=== PATIENT | female | born 1965 | race Caucasian/White ===

== ENCOUNTER → 2016-04-14 | Outpatient (CLI) | payer OTHER ==
[~2016-04-14] MED LIST: ALPR0.5T3 PO; CARI350T19 PO; CARI350T20 PO; GABA300C3 PO; GEMF600 PO; HYDR-3583 PO; HYDR2TAB PO; LOPI600T PO; LYRI100C PO; MOBI15TA PO; NAPR-576 PO; OMEP20TA PO; SERT-129 PO; SERT-132 PO; ZOFR4TAB3 SL; ZOLP5TAB3 PO
[2016-04-14 13:27] LABS: AUTOMATED NEUTROPHIL # 2.6 TH/MM3 (1.8-7.7); BASOPHIL % 0.4 % (0.0-2.0); EOSINOPHIL # 0.2 TH/MM3 (0-0.4); EOSINOPHIL % 3.3 % (0.0-4.0); HEMATOCRIT 36.8 % (35.0-46.0); HEMO FLAGS DIFF FINAL; LYMPH % 30.6 % (9.0-44.0); LYMPHOCYTE # 1.4 TH/MM3 (1.0-4.8); MEAN CELL VOLUME 83.5 FL (80.0-100.0); MEAN CORPUSCULAR HEMOGLOBIN 28.3 PG (27.0-34.0); MEAN CORPUSCULAR HGB CONC 33.9 % (32.0-36.0); MONO % 8.8 % (0.0-8.0); NEUT % 56.9 % (16.0-70.0); PLATELET COUNT 273 TH/MM3 (150-450); RED CELL DISTRIBUTION WIDTH 13.3 % (11.6-17.2); WHITE BLOOD COUNT 4.6 TH/MM3 (4.0-11.0)
[2016-04-14 13:52] LABS: BICARBONATE 29.8 MEQ/L (21.0-32.0); POTASSIUM 3.9 MEQ/L (3.5-5.1)
--- NOTE | 2016-04-15 17:21 | EKG ---
Date Performed: 04/14/2016 Time Performed: 13:19:52 PTAGE: 50 years EKG: Sinus rhythm WITH SINUS ARRHYTHMIA NONSPECIFIC T-WAVE ABNORMALITY BORDERLINE ECG NO PREVIOUS TRACING DOCTOR: Dorinda Elliott Interpretating Date/Time 04/15/2016 17:15:45
== END ==
LOC: CPRE 12:58
PROVIDERS: ATTEND Orthopaedic Surgery Orthopaedic Surgery of the Spine
DX: Z01.812 Encounter for preprocedural laboratory examination (principal); Z01.810 Encounter for preprocedural cardiovascular examination; D25.9 Leiomyoma of uterus, unspecified; R10.2 Pelvic and perineal pain; I49.8 Other specified cardiac arrhythmias
CPT/HCPCS: 36415; 80048; 85025; 93005

== ENCOUNTER 2016-04-21 08:19 | Observation (INO) | payer OTHER ==
[~2016-04-21] VITALS: Ht 162.6 cm; Wt 61.8 kg
[~2016-04-21 08:19] MED LIST changes: -CARI350T19 PO; -GABA300C3 PO; -HYDR2TAB PO; -LOPI600T PO; -NAPR-576 PO; -SERT-129 PO; -ZOFR4TAB3 SL
[2016-04-21] MEDS ORDERED: SODIUM CHLORID 0.9% 500 ML IV SCH (09:00)
[2016-04-21] MEDS ORDERED: CHLORHEXIDINE GLUCONATE 4% SOLN 120 ML BTL TOP SCH (09:00)
[2016-04-21] MEDS ORDERED: METOPROLOL TARTRATE 25 MG TAB PO PRN (09:00)
[2016-04-21] MEDS ORDERED: ceFAZolin 2 GM PREMIX 50 ML IV SCH (09:00)
[2016-04-21] MEDS ORDERED: LACTATED RINGER'S 1000 ML IV SCH (09:00)
[2016-04-21] MEDS ORDERED: INSULIN HUMAN REGULAR 1,000 UNITS/10 ML VIAL SQ PRN (09:00)
[2016-04-21] MEDS ORDERED: VANCOMYCIN 1000 MG/NS 250 ML (for <70 kg) IV SCH ×2 (09:00)
[2016-04-21 09:29] VITALS: BP 99/62; PULSE 60; RESP 20; TEMP 98.9; O2SAT 100
[2016-04-21] MEDS ORDERED: APREPITANT 40 MG CAP ONE (10:07)
[2016-04-21] MEDS ORDERED: DEXAMETHASONE SOD PHOS 4 MG/ML VIAL ONE (10:16)
[2016-04-21] MEDS ORDERED: FAMOTIDINE 20 MG/2 ML VIAL ONE (10:16)
[2016-04-21] MEDS ORDERED: MIDAZOLAM HCL 2 MG/2 ML VIAL ONE ×2 (10:16→12:12)
[2016-04-21] MEDS: BUPIVACAINE/EPINEPHRINE 0.25% PF 30 ML VIAL ONE ×2 (11:34→12:14)
[2016-04-21] MEDS: GENTAMICIN SULFATE 80 MG/2 ML VIAL ONE ×2 (11:34→12:13)
[2016-04-21] MEDS ORDERED: ONDANSETRON HCL 4 MG/2 ML VIAL IV PUSH ONE (12:00)
[2016-04-21] MEDS ORDERED: NEOSTIGMINE 3 MG/3 ML SYR IV ONE (12:00)
[2016-04-21] MEDS ORDERED: PHENYLEPHRINE HCL 10 MG/ML VIAL IV ONE (12:00)
[2016-04-21] MEDS ORDERED: PROPOFOL 200 MG/20 ML AMP IV ONE (12:00)
[2016-04-21] MEDS ORDERED: ePHEDrine/NS 25 MG/5 ML SYR IV ONE (12:00)
[2016-04-21] MEDS ORDERED: LACTATED RINGER'S 1000 ML INJ 1,000 ML IV ONE (12:00)
[2016-04-21] MEDS ORDERED: fentaNYL CITRATE 250 MCG/5 ML AMP ONE (12:12)
[2016-04-21] MEDS: LACTATED RINGER'S 1000 ML INJ 1,000 ML IV SCH (14:11)
[2016-04-21] MEDS ORDERED: PROMETHAZINE INJ 25 MG/ML VIAL IM PRN (14:15)
[2016-04-21] MEDS ORDERED: ALUMINUM/MAGNESIUM/SIMETH 30 ML CUP PO PRN (14:15)
[2016-04-21] MEDS ORDERED: NALOXONE HCL 0.4 MG/ML AMP IV PRN (14:15)
[2016-04-21] MEDS ORDERED: SODIUM CHLORIDE 0.9% FLUSH 5 ML FLUSH IVF PRN (14:15)
[2016-04-21] MEDS ORDERED: Post-op Orders (for Pharmacy) MISC XX ONE (14:15)
[2016-04-21] MEDS ORDERED: ONDANSETRON HCL 4 MG/2 ML VIAL IV PRN (14:15)
--- NOTE | 2016-04-21 14:21 | HHI.PR ---
Immediate Post Op Note Procedure Date: Apr 21, 2016 Pre Op Diagnosis: C5-6 ODC,C6-7 HNP L sided cervical rad,L UE weakness DDD,OA Post Op Diagnosis: Same Surgeon: Francisco Kaur MD Invertebrate Paleontologist(s): Stefany No PA-C Procedure: C5-6,C6-7 AIF,ACC,ASI Complications: None Estimated blood loss: 250 cc Anesthesia: General Drains: None Patient to: PACU Patient Condition: Good Implant/Devices: SEE IMPLANT LOG (if applicable) Date/Time of Procedure: SEE SURGICAL CARE RECORD Francisco Kaur MD Apr 21, 2016 14:21
--- NOTE | 2016-04-21 14:32 | RADRPT ---
EXAM DATE/TIME: 04/21/2016 13:37 [place] COMPARISON: No previous studies available for comparison. INDICATIONS : Cervical fusion, C5-6, C6-7. MEDICAL HISTORY : Unobtainable. SURGICAL HISTORY : Unobtainable. ENCOUNTER: Initial ACUITY: 1 day PAIN SCORE: Non-responsive. LOCATION: Neck. CONCLUSION: Fluoroscopic images during placement fusion plate C5-C7. Intervertebral disc devices also noted. Jim Mathews MD on April 21, 2016 at 14:30 Board Certified Radiologist. This report was verified electronically.
[2016-04-21] MEDS ORDERED: *MEPERIDINE 25 MG INJ VIAL PERIprocedural Use ONLY ONE (14:39)
[2016-04-21] MEDS ORDERED: *morphine SULFATE 8 MG/ML PERIprocedure ONLY ONE ×3 (15:16→16:41)
[2016-04-21 17:09] VITALS: BP 100/56; PULSE 99; RESP 19; TEMP 96; O2SAT 96
--- NOTE | 2016-04-21 17:17 | PD.OP ---
cc: Francisco Kaur MD; Benedicto Kaur MD Operative Report Date of Surgery: Apr 21, 2016 Preoperative Diagnosis: Osteophyte disc complex C56 and C6 7. Bilateral cervical radiculopathy, right greater than left Herniated nucleus pulposus C6 7, central, large. Cervical spinal cord compression, C67 Postoperative Diagnosis: Same Procedure: Anterior cervical discectomy with decompression and bilateral foraminotomies, C5 6. Anterior cervical discectomy with decompression and bilateral foraminotomies, C6 7. Left anterior iliac crest bone graft Anesthesia: Gen. Surgeon: Benedicto Kaur Healthcare Economics Manager(s): SHAYLA Hoyos Operation and Findings: EBL: 50 cc INDICATIONS: Patient is a 50-year-old female with significant neck and arm pain and weakness. Studies shows evidence of a high-grade stenosis at C6 7 with spinal cord compromise associated with a central large disc herniation. There is evidence of an osteophyte disc complex at C5 6 and bilateral foraminal stenosis worse on the right than on the left. She presents for surgical treatment NOTE: Viktoriya Hoyos PA-C was present for the entire surgical procedure as my first press operator. In my medical opinion her skill and care was necessary for proper management of this patient PROCEDURE: The patient was brought to the operating room and anesthetized in the supine position. This patient was positioned supine on the radiolucent table. All pressure points were protected in the anterior cervical spine and iliac crest was scrubbed with alcohol followed by Hibiclens followed by ChloraPrep. A timeout was done and antibiotics were given within 1 hour time window. Lateral radiographic images were used identifying the proper level. A right anterior incision was made in line with skin creases. The platysma was opened in line with the incision. Deep dissection continued in the interval between the carotid sheath and the esophagus. The longus-coli muscles were lifted on both sides and retractors were positioned allowing good exposure. Lateral radiographic images were used to identify the proper level. [place] style interosseous pins were placed at C5 and C6 allowing exposure to that level. The microscope was rolled into the field. A total discectomy was accomplished and posterior osteophytes were removed. The posterior longitudinal ligament and annulus was taken down. Bilateral foraminotomies were accomplished. The endplates were squared up anticipating later bone grafting. A blunt probe could be placed out each foramen without evidence of nerve root compromise. The C5 pin was placed down to C7. An anterior exposure was accomplished. We performed a total discectomy with excision of the posterior annulus and posterior longitudinal ligament. Bilateral foraminotomies were accomplished. Osteophytes were removed. The endplates were squared up anticipating later bone grafting. A blunt probe could be placed out each foramen without evidence of nerve root compromise. The left iliac crest was approached. A small stab incision was made allowing percutaneous access to the anterior iliac crest. Multiple cores of cancellous bone were harvested and taken to the back table to be used for later bone grafting. The wound was irrigated anesthetized and closed with 4-0 Vicryl followed by Dermabond. The case was turned over to Dr. Francisco Kaur for fusion and instrumentation per his dictation. FINDINGS: There was evidence of a significant osteophyte disc complex with right greater than left foraminal stenosis to the C5 6 level. There was a large central disc herniation at C6 7 which was resected. This was had extruded through the posterior longitudinal ligament and was adjacent to the dura. NOTE: This surgery was performed in 2 parts. The first part was the neurosurgical decompression performed under the variable power stereo microscope by the undersigned in addition to the bone graft. The second portion of the surgery will be performed by the orthopedic spine component by co -surgeon, Dr. Francisco Kaur for the anterior fusion with interbody cage and anterior plate. The skill of 2 surgeons was necessary to perform distinct separate procedural services as dictated above and dictated in the following operative note by Dr. Francisco Kaur. Benedicto Kaur MD Apr 21, 2016 17:17
[2016-04-21] MEDS: ACETAMINOPHEN/HYDROcodone 325 MG/10 MG TAB PO PRN (18:08)
[2016-04-21 20:00] VITALS: BP 110/59; PULSE 78; RESP 18; TEMP 96.9; O2SAT 97
[2016-04-21] MEDS: PREGABALIN 100 MG CAP PO SCH (20:30)
[2016-04-21] MEDS: SERTRALINE HCL 50 MG TAB PO SCH (20:30)
[2016-04-21] MEDS: SODIUM CHLORIDE 0.9% FLUSH 5 ML FLUSH IVF SCH (20:32)
[2016-04-21] MEDS ORDERED: ZOLPIDEM TARTRATE 5 MG TAB PO PRN (21:00)
[2016-04-21] MEDS ORDERED: ALPRAZolam 0.5 MG TAB PO PRN (21:00)
[2016-04-21] MEDS: CARISOPRODOL 350 MG TAB PO PRN (22:37)
[2016-04-22] VITALS (8 sets, daily range): BP systolic 90–112; BP diastolic 52–64; PULSE 66–75; RESP 16–18; TEMP 97.4–100; O2SAT 96–99
[2016-04-22] MEDS: ACETAMINOPHEN/HYDROcodone 325 MG/10 MG TAB PO PRN ×3 (00:10→21:56)
[2016-04-22] MEDS: LACTATED RINGER'S 1000 ML INJ 1,000 ML IV SCH ×3 (04:58→20:15)
--- NOTE | 2016-04-22 07:12 | PD.ORT.PN ---
Subjective Subjective Remarks pt states she has improvement with left arm numbness pre-op left arm weakness has resolved no significant pain Objective Vitals Vital Signs Date Time Temp Pulse Resp B/P Pulse Ox O2 Delivery O2 Flow Rate FiO2 04/22/16 04:25 98.8 68 16 90/57 97 04/22/16 00:05 97.6 73 18 112/64 99 04/21/16 20:00 96.9 78 18 110/59 97 04/21/16 17:09 96.0 99 19 100/56 96 04/21/16 16:00 89 14 106/53 97 Room Air 04/21/16 15:00 79 14 101/50 96 Room Air 04/21/16 14:45 59 14 97/50 97 Nasal Cannula 2 04/21/16 14:30 62 14 98/52 94 Nasal Cannula 2 04/21/16 14:23 98.0 67 14 101/51 100 Nasal Cannula 2 04/21/16 09:29 98.9 60 20 99/62 100 I/O 04/21/16 04/21/16 04/21/16 04/22/16 04/22/16 04/22/16 07:00 15:00 23:00 07:00 15:00 23:00 Intake Total 1200 ml 1360 ml 480 ml Output Total 500 ml 400 ml 250 ml Balance 700 ml 960 ml 230 ml Intake Oral 360 ml 480 ml IV Total 1000 ml Other 1200 ml Output Urine Total 400 ml 250 ml Estimated Blood Loss 250 ml Other 250 ml Objective Remarks seen by Dr. Francisco Kaur barney collar in place dressing dry and intact motor is +5/5 to UE Assessment & Plan Assessment and Plan POD # 1 s/p C5-7 ACDF orthopedically stable norco 10 mg rx in chart discharge home today Stefany No Apr 22, 2016 07:12
[2016-04-22] MEDS: SODIUM CHLORIDE 0.9% FLUSH 5 ML FLUSH IVF SCH ×2 (08:56→20:16)
[2016-04-22] MEDS: PANTOPRAZOLE SOD 20 MG DELAYED RELEASE TAB PO SCH (08:56)
[2016-04-22] MEDS: MULTIVITAMINS/MINERALS THERAPEUTIC TAB PO SCH ×2 (08:56→20:16)
[2016-04-22] MEDS: GEMFIBROZIL 600 MG TAB PO SCH (08:56)
--- NOTE | 2016-04-22 11:01 | PD.CONS ---
HPI Service [facility] Hospitalists Consult Requested By Dr. Francisco Kaur Reason for Consult Medical Management Primary Care Physician Dr. Vanessa Nuñez Diagnoses: History of Present Illness Mrs. Richard is a pleasant 50 y/o WF with chronic back pain, herniated cervical discs and fibromyalgia. She was admitted to [facility] on 04/21/16 for C5-7 ACDF for treatment of a high-grade stenosis at C6 7 with spinal cord compromise associated with a central disc herniation and an osteophyte disc complex at C5 6 and bilateral foraminal stenosis worse on the right than on the left. [facility] Hospitalist team was consulted to help with medical management of the pts chronic medical issues. Pt is seen post-operatively. She complains of generalized weakness, chills, and nausea. She has been afebrile since admission. Her BP has been on the low/normal side. Pain has been well controlled with oral pain medications. She does still have her Sheffield catheter in place. Denies any chest pain, SOB, palpitations, dizziness, abd pain. She has passed flatus. Rebecca any belching. Pt has not gotten up out of bed yet. Review of Systems Constitutional: COMPLAINS OF: Chills, DENIES: Diaphoretic episodes, Dizziness , Night Sweats Respiratory: DENIES: Cough, Shortness of breath Cardiovascular: DENIES: Chest pain, Palpitations Gastrointestinal: COMPLAINS OF: Nausea, DENIES: Abdominal pain, Vomiting Genitourinary: COMPLAINS OF: Urgency, DENIES: Urinary frequency, Hematuria, Dysuria Musculoskeletal: DENIES: Joint pain Integumentary: DENIES: Rash Neurologic: COMPLAINS OF: Localized weakness, DENIES: Headache Psychiatric: DENIES: Confusion Past Family Social History Past Medical History Fibromyalgia Herniated cervical disc/radiculitis Chronic back pain Hyperlipidemia Nontoxic multinodular goiter/Solitary thyroid nodule Past Surgical History Bilateral breast reduction Reported Medications -Hydrocodone-Acetaminophen 10-325 mg Tab 1 Tab PO QID PRN -Zolpidem 5 Mg PO HS PRN -Omeprazole 20 Mg PO DAILY -Sertraline 50 Mg PO HS -Lopid 600 Mg PO HS -Carisoprodol 350 Mg PO HS PRN -Lyrica 100 Mg PO HS -Alprazolam 0.5 Mg PO HS PRN -Mobic 15 Mg PO HS Allergies: Coded Allergies: No Known Allergies (Unverified , 3/2/17) Family History Mother with a hx of diabetes Father with hx of prostate cancer Social History Denies any hx of tobacco, alcohol or illicit drug use Pt is She and her are property managers Physical Exam Vital Signs Vital Signs Date Time Temp Pulse Resp B/P Pulse Ox O2 Delivery O2 Flow Rate FiO2 04/22/16 10:11 96 21 04/22/16 08:00 98.4 71 16 96/53 97 04/22/16 04:25 98.8 68 16 90/57 97 04/22/16 00:05 97.6 73 18 112/64 99 04/21/16 20:00 96.9 78 18 110/59 97 04/21/16 17:09 96.0 99 19 100/56 96 04/21/16 16:00 89 14 106/53 97 Room Air 04/21/16 15:00 79 14 101/50 96 Room Air 04/21/16 14:45 59 14 97/50 97 Nasal Cannula 2 04/21/16 14:30 62 14 98/52 94 Nasal Cannula 2 04/21/16 14:23 98.0 67 14 101/51 100 Nasal Cannula 2 Physical Exam GENERAL: This is a well-nourished, well-developed patient, in no apparent distress. HEENT: Atraumatic. Normocephalic. No temporal or scalp tenderness. No scleral icterus. Airway patent. NECK: Cervical collar in place CARDIO: Regular RESP: CTA bilaterally. No wheezes, rales, or rhonchi. ABD: +BS, soft, non-tender, nondistended. EXT: Extremities without clubbing, cyanosis, or edema. NEURO: Awake and alert. Motor and sensory grossly within normal limits. Normal speech. Imaging Last Impressions Cervical Spine X-Ray 04/21/16 0000 Signed Impressions: Service Date/Time: April 13:37 - CONCLUSION: Fluoroscopic images during placement fusion plate C5-C7. Intervertebral disc devices also noted. Jim Mathews MD Assessment and Plan Problem List: (1) DDD (degenerative disc disease), cervical Status: Chronic Plan: - Pt s/p C5-7 ACDFon 04/21/[address] Kaur for treatment of a high-grade stenosis at C6 7 with spinal cord compromise associated with a central disc herniation and an osteophyte disc complex at C5 6 and bilateral foraminal stenosis worse on the right than on the left. - Post-op pain control per Ortho - Pts BP has been low/normal likely secondary to anesthesia and pain meds. Pt is on IVF - Encourage oral intake - Zofran PRN for nausea, frequency increased to Q4H PRN - Keep cervical collar in place - PT - IS - Sheffield catheter to be removed now - Monitor vitals - Constipation precautions. - Anticipate discharge to home tomorrow (2) Hyperlipidemia Status: Chronic Plan: - Home meds continued (3) Fibromyalgia Status: Chronic Plan: - Home meds continued Assessment and Plan Patient examined. Assessment and plan formulated with Dasha Suero PA-C. I agree with the above. Dasha Suero Apr 22, 2016 11:01 Aristides Ansari DO Apr 25, 2016 13:57
--- NOTE | 2016-04-22 11:10 | MP ---
cc: ELIOT MCCLELLAN M.D., ALBERT W. M.D. DATE OF SURGERY: 04/21/2016 PREOPERATIVE DIAGNOSIS 1. C5-6 osteophyte disc complex. 2. C6-7 moderate herniated nucleus pulposus. 3. Cervical spine degenerative disease osteoarthritis. 4. Left-sided cervical radiculitis with left upper extremity weakness. POSTOPERATIVE DIAGNOSIS 1. C5-6 osteophyte disc complex. 2. C6-7 moderate herniated nucleus pulposus. 3. Cervical spine degenerative disease osteoarthritis. 4. Left-sided cervical radiculitis with left upper extremity weakness. PROCEDURE C5-6, C6-7 anterior interbody fusion; C5-6, C6-7 SpineNet ACC anterior cervical cage; C5-C7 SpineNet Rh[place]ler anterior spinal instrumentation. SURGEON Eli Kaur MD CORRESPONDENT Stefany No PA-C SPECIMEN None. ESTIMATED BLOOD LOSS 250 cc total. COMPLICATIONS None. ANESTHESIA General. DRAINS None. CONDITION Stable. PLAN OF ACTIVITY Per orders. DETAILS OF PROCEDURE Dr. Benedicto Kaur and myself were co-surgeons. Dr. Benedicto Kaur performed the neuro decompressive portion of the procedure at C5-6 and C6-7. Using an operative microscope he performed an anterior cervical discectomy, anterior decompression and foraminotomies at C5-6 and C6-7, and left anterior iliac crest bone grafting. I was not present for his portion of the procedure. I then performed the orthopedic spinal fusion and spinal stabilization procedure which is well-described in my operative note. My botany laboratory assistant Stefany No PA-C was present for my portion of the case. She was medically necessary for the case because of the complexity of the case and to facilitate the performance of the procedure. The HEARING IMPAIRED TEACHER at the back table did not have the skill set for this case to manipulate the instruments, e.g., the multiple different soft tissue retractors, trial implants, permanent implants and bone grafting for fusion. The endplates at C6-7 were prepared for fusion. The hyaline cartilage endplates were removed using angled curets and burs. A 6 10 x 12 SpineNet ACC cage was placed in the interspace. Under fluoroscopic guidance the anterior crest bone grafting was placed for interbody fusion. The endplates at C5-6 were prepared for fusion. The hyaline cartilage endplates were removed using angled curets and burs. A 5 10 x 12 SpineNet ACC cage was placed in the interspace and anterior iliac crest bone grafting was placed in the interspace under fluoroscopic guidance. The anterior osteophytes were removed using multiple different types of rongeurs and a bur. A 46 mm length plate was contoured to the patient's normal cervical lordosis. A transfixion pin was used to confirm appropriate fixation and imaging was used to confirm appropriate positioning of the plate with AP and lateral plane. A single transfixion pin was used to provide fixation. Two screws were used in the vertebral body at C5, C6 and C7. These screws were drilled. 14 mm length screws, 4.0 mm outer diameter fixed angle screws were used for internal fixation. Each screw head was appropriately locked into the plate. Intraoperative fluoroscopy in AP and lateral plane confirmed satisfactory position of the bone graft to C5-6, C6-7, satisfactory position of the ACC cages at C5-6 and C6-7, and satisfactory of the anterior spinal instrumentation from C5-C7. The wound was irrigated with copious amounts of sterile saline antibiotic solution. All bleeders were individually coagulated. There was no evidence of any active bleeding. The wound was closed in multiple layers using 3-0 Vicryl suture. The skin was approximated with running subcuticular 4-0 Vicryl suture. Dermabond was placed over the incision. Sterile dressing was applied. The patient tolerated the procedure well and arrived in the recovery room in stable and satisfactory. The patient was placed in a [place] cervical orthosis after sterile dressings were applied. MD STEFANI Fenton/MARIA DEL CARMEN /2:11 PM /10:45 AM
[2016-04-22] MEDS ORDERED: ONDANSETRON HCL 4 MG/2 ML VIAL IV PRN (13:00)
[2016-04-22] MEDS: SERTRALINE HCL 50 MG TAB PO SCH (20:15)
[2016-04-22] MEDS: PREGABALIN 100 MG CAP PO SCH (20:15)
[2016-04-22] MEDS: CARISOPRODOL 350 MG TAB PO PRN (20:19)
[2016-04-23 00:59] VITALS: BP 100/55; PULSE 77; RESP 16; TEMP 99.2; O2SAT 95
[2016-04-23] MEDS: ACETAMINOPHEN/HYDROcodone 325 MG/10 MG TAB PO PRN (04:43)
[2016-04-23 05:30] VITALS: BP 94/55; PULSE 66; RESP 20; TEMP 97.8; O2SAT 100
[2016-04-23] MEDS: PANTOPRAZOLE SOD 20 MG DELAYED RELEASE TAB PO SCH (07:54)
[2016-04-23] MEDS: GEMFIBROZIL 600 MG TAB PO SCH (07:55)
[2016-04-23 08:00] VITALS: BP 104/63; PULSE 65; RESP 16; TEMP 97.8; O2SAT 97
--- NOTE | 2016-04-23 08:33 | HHI.PR ---
Subjective Remarks Pt is feeling much better today and is stable for discharge. Her BP is low normal Pt denies any dizziness No further nausea and pt is tolerating her diet. Objective Vitals Vital Signs Date Time Temp Pulse Resp B/P Pulse Ox O2 Delivery O2 Flow Rate FiO2 04/23/16 05:30 97.8 66 20 94/55 100 04/23/16 00:59 99.2 77 16 100/55 95 04/22/16 21:06 100.0 68 18 103/54 98 04/22/16 16:00 98.4 75 16 101/57 97 04/22/16 14:20 100/52 Automatic Cuff 04/22/16 12:00 97.4 66 16 98/54 98 04/22/16 10:11 96 21 04/22/16 04/22/16 04/23/16 15:00 23:00 07:00 Intake Total 1080 ml 642 ml Balance 1080 ml 642 ml Intake Oral 480 ml IV Total 600 ml 642 ml # Voids 4 4 # Bowel Movements 0 0 Imaging Last Impressions Cervical Spine X-Ray 04/21/16 0000 Signed Impressions: Service Date/Time: April 13:37 - CONCLUSION: Fluoroscopic images during placement fusion plate C5-C7. Intervertebral disc devices also noted. Jim Mathews MD Objective Remarks General: NAD, AAOx3 Chest: CTA bilaterally Cardiac: Regular Abd: +BS, soft ND/NT Ext: No edema A/P Problem List: (1) DDD (degenerative disc disease), cervical Status: Chronic Plan: - Pt s/p C5-7 ACDFon 04/21/[address] Kaur for treatment of a high-grade stenosis at C6 7 with spinal cord compromise associated with a central disc herniation and an osteophyte disc complex at C5 6 and bilateral foraminal stenosis worse on the right than on the left. - Post-op pain control per Ortho - Pts BP has been low/normal likely secondary to anesthesia and pain meds. This was stable overnight - Encourage oral intake - Keep cervical collar in place per Ortho orders - Zofran PRN for nausea - Pt had a low grade fever overnight, likely secondary to atelectasis, encouraged IS use - Constipation precautions. - Pt planned for discharge to home today. - She will need to followup with her PCP, Dr. Cohen, in 1 week. - She will need to followup with Dr. Kaur in 2 weeks. (2) Hyperlipidemia Status: Chronic Plan: - Home meds continued (3) Fibromyalgia Status: Chronic Plan: - Home meds continued Assessment and Plan Patient examined. Assessment and plan formulated with Dasha Suero PA-C. I agree with the above. Dasha Suero Apr 23, 2016 08:33 Aristides Ansari DO Apr 25, 2016 13:56
[2016-04-23] MEDS ORDERED: ZOFR4TAB3 SL (08:34)
--- NOTE | 2016-04-23 08:34 | HHI.DCPOC ---
Discharge Care Plan Diagnosis: (1) DDD (degenerative disc disease), cervical (2) Hyperlipidemia (3) Fibromyalgia Goals to Promote Your Health * To prevent worsening of your condition and complications * To maintain your health at the optimal level Directions to Meet Your Goals Take your medications as prescribed Follow your dietary instruction Follow activity as directed Keep your appointments as scheduled Take your immunizations and boosters as scheduled If your symptoms worsen call your PCP, if no PCP go to Urgent Care Center or Emergency Room Smoking is Dangerous to Your Health. Avoid second hand smoke Call the 24-hour hour crisis hotline for domestic abuse at Dasha Suero Apr 23, 2016 08:34 Aristides Ansari DO Apr 25, 2016 13:56
--- NOTE | 2016-04-23 09:44 | PD.ORT.PN ---
Subjective Subjective Remarks feeling much better. pain controlled. no issues. Objective Vitals Vital Signs Date Time Temp Pulse Resp B/P Pulse Ox O2 Delivery O2 Flow Rate FiO2 04/23/16 05:30 97.8 66 20 94/55 100 04/23/16 00:59 99.2 77 16 100/55 95 04/22/16 21:06 100.0 68 18 103/54 98 04/22/16 16:00 98.4 75 16 101/57 97 04/22/16 14:20 100/52 Automatic Cuff 04/22/16 12:00 97.4 66 16 98/54 98 04/22/16 10:11 96 21 I/O 04/22/16 04/22/16 04/22/16 04/23/16 04/23/16 04/23/16 07:00 15:00 23:00 07:00 15:00 23:00 Intake Total 480 ml 1080 ml 642 ml Output Total 250 ml Balance 230 ml 1080 ml 642 ml Intake Oral 480 ml 480 ml IV Total 600 ml 642 ml Output Urine Total 250 ml # Voids 4 4 # Bowel Movements 0 0 Objective Remarks muck[place]oot collar in place dressing dry and intact motor is +5/5 to bilateral UE Assessment & Plan Assessment and Plan POD # 2 s/p C5-7 ACDF orthopedically stable. doing well. norco 10 mg rx in chart discharge home today Irvin Singh Jr., MD Apr 23, 2016 09:44
[2016-04-23] MEDS ORDERED: HYDR-3583 PO (10:53)
== END 2016-04-23 12:58 | disposition home or self-care (01) ==
LOC: HSDC 08:19 → EDUNIT# 08:30 → HSDI 14:16 → N06B 16:59
PROVIDERS: ADMIT Hospitalist; ATTEND Hospitalist
DX: M50.123 Cervical disc disorder at C6-C7 level with radiculopathy (principal); M50.122 Cervical disc disorder at C5-C6 level with radiculopathy; M47.9 Spondylosis, unspecified; M25.78 Osteophyte, vertebrae; R53.1 Weakness; M54.2 Cervicalgia
CPT/HCPCS: 00600; 20937; 22551; 22552; 22845; 22854; 72040; 76000; 94150; C1713; G0378; J0690; J1100; J1580; J2175; J2250; J2270; J2370; J2405; J2710; J3010; J3370; J7050; J7120; J8501; L0150